=== PATIENT | female | born 1955 | race Caucasian/White ===

== ENCOUNTER 2017-01-31 08:47 | Outpatient (CLI) | payer BC ==
--- NOTE | 2017-01-31 13:35 | NM ---
NUCLEAR MEDICINE HIDA SCAN: Date: 01/31/17 HISTORY: Abdominal distention. Hematochezia. Liver hemangioma. Gallbladder polyp. COMPARISON: Gallbladder ultrasound from 2008. TECHNIQUE: Real-time imaging of the abdomen was performed with intravenous administration of 5.2 mCi technetium- 99m mebrofenin. After 1 hour, 8 oz. of Ensure was given orally. FINDINGS: There is normal hepatic uptake. Gallbladder is seen quickly. The extrahepatic biliary system uptake i s normal. Bowel is seen quickly. The ejection fraction is normal at 43%. IMPRESSION: Normal nuclear medicine HIDA scan with ejection fraction. POS: [facility]
== END 2017-01-31 08:48 | disposition home or self-care (01) ==
LOC: NM 08:47
PROVIDERS: ATTEND Internal Medicine Gastroenterology
DX: D18.03 Hemangioma of intra-abdominal structures (principal); K82.4 Cholesterolosis of gallbladder; K92.1 Melena; R14.0 Abdominal distension (gaseous); Z80.0 Family history of malignant neoplasm of digestive organs
CPT/HCPCS: 78227; A9537

== ENCOUNTER 2017-10-13 07:48 | Outpatient (CLI) | payer BC | END 2017-10-13 07:49 | disposition home or self-care (01) | LOC: BICCT 07:48 | PROVIDERS: ATTEND Internal Medicine Gastroenterology | DX: R10.30 Lower abdominal pain, unspecified (principal) | CPT/HCPCS: 74177 ==

== ENCOUNTER → 2018-05-18 | Day surgery (SDC) | payer BC | LOC: ENDO/OP 07:42 | PROVIDERS: ATTEND Internal Medicine Gastroenterology | DX: R13.10 Dysphagia, unspecified (principal); R10.30 Lower abdominal pain, unspecified; E55.9 Vitamin D deficiency, unspecified; R35.1 Nocturia; Z79.899 Other long term (current) drug therapy | CPT/HCPCS: 91010 ==

== ENCOUNTER 2018-11-23 16:01 | Outpatient (CLI) | payer BC ==
[2018-11-23 17:18] LABS: #Basophils 0.1 thou/uL (0.0-0.2); #Eosinphils 0.1 thou/uL (0.0-0.7); #Lymphocytes 2.6 thou/uL (1.20-3.40); #Monocytes 0.5 thou/uL (0.11-0.59); #Neutrophils 2.9 thou/uL (1.40-6.50); %Basophils 1.3 % (0.0-1.0); %Eosinophils 1.7 % (0.0-10.0); %Lymphocytes 41.6 % (21.0-51.0); %Monocytes 8.4 % (0.0-10.0); Hemoglobin 15.3 g/dL (12.0-16.0); Mean Corpuscular HGB CONC 34.4 g/dL (32.0-36.0); Mean Corpuscular Hemoglobin 31.1 pg (27.0-31.0); Mean Corpuscular Volume 90.4 fL (78.0-98.0); Mean Platelet Volume 8.8 fL (7.4-10.4); Platelet Count 286 thou/uL (130-400); RBC Distribution Width 11.7 % (11.5-14.5); White Blood Cell (WBC) Count 6.1 thou/uL (4.8-10.8)
[2018-11-23 17:45] LABS: ALT (SGPT) 24 U/L (8-55); AST (SGOT) 17 U/L (5-34); Albumin 4.2 g/dL (3.4-4.8); Alkaline Phosphatase 76 U/L (40-150); Anion Gap 12 mmol/L (10-20); BUN (Urea Nitrogen) 16 mg/dL (9.8-20.1); Bilirubin, Total 0.4 mg/dL (0.2-1.2); Calc. Creatinine Clearance 0 mL/min (70-130); Calcium 10.4 mg/dL (7.8-10.44); Carbon Dioxide 29 mmol/L (23-31); Chloride 105 mmol/L (98-107); Estimated GFR-MDRD 64; Globulin 2.4 g/dL (2.4-3.5); Glucose 79 mg/dL (80-115); Potassium 4.2 mmol/L (3.5-5.1); Protein, Total 6.6 g/dL (6.0-8.3); Sodium 142 mmol/L (136-145)
--- NOTE | 2018-11-24 16:49 | EKG ---
Test Reason : Blood Pressure : / mmHG Vent. Rate : 085 BPM Atrial Rate : 085 BPM P-R Int : 148 ms QRS Dur : 070 ms QT Int : 344 ms P-R-T Axes : 041 066 064 degrees QTc Int : 409 ms Normal sinus rhythm Normal ECG When compared with ECG of 24-JAN-2009 12:18, No significant change was found Confirmed by DR. Sridhar ORANTES ([id number]) on 11/24/2018 4:49:17 PM Referred By: ARIEL Confirmed By:DR. Sridhar ORANTES
== END 2018-11-23 16:02 | disposition home or self-care (01) ==
LOC: LABBT 16:01
PROVIDERS: ATTEND Surgery
DX: Z01.818 Encounter for other preprocedural examination (principal); N90.89 Other specified noninflammatory disorders of vulva and perineum
CPT/HCPCS: 80053; 85025; 93005; 93010

== ENCOUNTER 2018-12-01 05:52 | Day surgery (SDC) | payer BC ==
[2018-11-23 16:33] VITALS: BMI 31.0
[2018-12-01] MEDS ORDERED: Fentanyl 100 MCG/2 ML VIAL ONE (06:33)
[2018-12-01] MEDS ORDERED: Lidocaine 2% PF 5 ML VIAL ONE (06:34)
[2018-12-01] MEDS ORDERED: Bupivacaine HCl 0.5%/Epinephrine 1:200,000/PF 30 ml Vial ONE (06:34)
--- NOTE | 2018-12-01 12:49 | OP ---
DATE OF PROCEDURE: 12/01/2018 PREOPERATIVE DIAGNOSIS: Perineal cyst x2, right perineum. PROCEDURE PERFORMED: Excisional biopsy. INDICATIONS: A 63-year-old female, who has had the cysts for several months. They got infected, were draining. They have calmed down, but they still bother. FINDINGS: Two 5-mm cysts, right perineum. DESCRIPTION OF PROCEDURE: After informed consent was obtained, the patient was taken to the operating room, given general mask anesthesia, placed in lithotomy position. Perineum prepped and draped in usual fashion. Local anesthesia was infiltrated subcutaneously and deep. An elliptical incision was performed to excise both the cyst. These were excised. Hemostasis was achieved with direct pressure. The subcu was reapproximated with interrupted 3-0 Vicryl, skin was closed with interrupted 4-0 Rapide. Steri-Strips applied. Sterile bandage applied. The patient tolerated the procedure well, transferred to Recovery in good condition. Sponge and needle count verified correct x2. Job ID: [id number]
[2018-12-01] MEDS ORDERED: Lidocaine 1% PF 5 ML VIAL ONE (13:34)
[2018-12-01] MEDS ORDERED: PROPOFOL 200 MG/20 ML VIAL ONE (13:34)
[2018-12-01] MEDS ORDERED: PHENYLEPHRINE-NS 100 MCG/ML 10 ML SYRINGE ONE (13:34)
[2018-12-01] MEDS ORDERED: Ketorolac Tromethamine 30 MG/ML VIAL ONE (13:34)
[2018-12-01] MEDS ORDERED: Dexamethasone 20 MG/5 ML VIAL ONE (13:34)
[2018-12-01] MEDS ORDERED: Ondansetron PF 4 MG/2 ML Vial ONE (13:34)
--- NOTE | 2018-12-05 05:55 | PQF ---
[facility] POST DISCHARGE CLINICAL DOCUMENTATION IMPROVEMENT CLARIFICATION FORM l Todays Date: 12/05/18 l Patients Name JAYSON WOODRUFF l l Admit Date 12/01/18 l Disch Date 12/01/18 Ent Physician Name Dixon Senior Email: [email or web address] Cell: [phone] To be completed by Ent Physician: Present Clinical Indicators - Signs / Symptoms Results and Location in Medical Record [ ] Documentation of: [ ] [ ] Documentation of: [ ] [ ] Documentation of: [ ] [ ] Documentation of: [ ] [ ] Risks [ ] [ ] [ ] Treatment [ ] Epidermal inclusion cyst (x2) Perineum Query for size of excised margins for both (x2) epidermal inclusion cysts [ ] [ ] To be completed by Physician: ANGEL GIBBONS The documentation in this patients record requires clarification to ensure coding compliance and accuracy. Check the appropriate box and include in your discharge summary. [ ] [ ] [ ] [ ] Please check this box if this does not apply to this patient [ ] Unable to determine [ ] Other diagnosis: Review the following information and exercise your independent professional judgment in responding to the clarification. Based upon the clinical findings, risk factors, and treatment, please clarify if you are treating one of the above probable or suspected diagnoses. Physician Signature: Date Time MTDD
== END 2018-12-01 10:37 | disposition home or self-care (01) ==
LOC: SDC 05:52
PROVIDERS: ATTEND Surgery
DX: L72.0 Epidermal cyst (principal); K21.9 Gastro-esophageal reflux disease without esophagitis; K58.9 Irritable bowel syndrome, unspecified; M79.7 Fibromyalgia; G43.909 Migraine, unspecified, not intractable, without status migrainosus; E78.5 Hyperlipidemia, unspecified; I10 Essential (primary) hypertension; I25.10 Atherosclerotic heart disease of native coronary artery without angina pectoris; Z79.899 Other long term (current) drug therapy
CPT/HCPCS: 88304; J0131; J0670; J0690; J1100; J1885; J2001; J2405; J2704; J3010

== ENCOUNTER 2019-01-19 13:33 | Outpatient (CLI) | payer BC ==
--- NOTE | 2019-01-19 13:59 | RAD ---
CHEST 2 VIEWS: HISTORY: Pneumonia, shortness of breath. COMPARISON: 12/31/2015. FINDINGS: Mild stable linear stranding in the lung bases. Heart size is within normal limits. The lungs are c lear of acute process. IMPRESSION: Mild stable bibasilar chronic changes. No significant active intrathoracic disease. No confluent pn eumonia. POS: [facility]
--- NOTE | 2019-01-19 15:57 | CT ---
CT Chest W Con HISTORY: Mass on back. This area was marked with a radiopaque marker. COMPARISON: None. FINDINGS: The lungs are clear of any infiltrative process. There are no pulmonary nodules identified. There is no significant mediastinal, hilar or axillary lymphadenopathy. The marker is placed along the left posterior back. There is no soft tissue mass demonstrated in this area. Liver shows mild fatty change. The right and left adrenal glands are normal IMPRESSION: 1. Fatty change of the liver. 2. Incidental note is made of thyroid nodules. 3. No evidence of any mass in the region of patient's palpable abnormality.
[2019-01-19] MEDS ORDERED: Iopamidol-370 76% 500 ML 1 ML ONE (16:27)
== END 2019-01-19 13:34 | disposition home or self-care (01) ==
LOC: BICCT 13:33
PROVIDERS: ATTEND Nurse Practitioner
DX: J18.9 Pneumonia, unspecified organism (principal); R22.2 Localized swelling, mass and lump, trunk; E04.2 Nontoxic multinodular goiter
CPT/HCPCS: 71046; 71260; Q9967

== ENCOUNTER 2019-04-16 09:51 | Outpatient (CLI) | payer BC ==
--- NOTE | 2019-04-18 10:12 | MMO ---
Bilateral MAMMO Bilat Screen [facility]. CLINICAL HISTORY: Patient is 63 years old and is seen for screening. The patient has the following family history of breast cancer: maternal aunt, at age 62, malignant (generic) and maternal aunt, at age 58, malignant (generic), great aunt. The patient has no personal history of cancer. VIEWS: The views performed were: bilateral craniocaudal with tomosynthesis and bilateral mediolateral oblique with tomosynthesis. FILMS COMPARED: The present examination has been compared to prior imaging studies performed at [facility] on 04/03/2018, at [facility] on 01/24/2017, and at [facility] on 05/29/2013 and 10/06/2015. This study has been interpreted with the assistance of computer-aided detection. MAMMOGRAM FINDINGS: There are scattered fibroglandular densities. There are no suspicious masses, suspicious calcifications, or new areas of architectural distortion. IMPRESSION: THERE IS NO MAMMOGRAPHIC EVIDENCE OF MALIGNANCY. A ROUTINE FOLLOW-UP MAMMOGRAM IN 1 YEAR IS RECOMMENDED. THE RESULTS OF THIS EXAM WERE SENT TO THE PATIENT. ACR BI-RADS Category 1 - Negative MAMMOGRAPHY NOTE: 1. A negative mammogram report should not delay a biopsy if a dominant of clinically suspicious mass is present. 2. Approximately 10% to 15% of breast cancers are not detected by mammography. 3. Adenosis and dense breasts may obscure an underlying neoplasm. Reported by: JUSTEN KEN MD Electonically Signed: [id number]
== END 2019-04-16 09:52 | disposition home or self-care (01) ==
LOC: BICMAMMO 09:51
PROVIDERS: ATTEND Nurse Practitioner
DX: Z12.31 Encounter for screening mammogram for malignant neoplasm of breast (principal); Z80.3 Family history of malignant neoplasm of breast
CPT/HCPCS: 77063; 77067

== ENCOUNTER 2019-09-25 13:29 | Outpatient (CLI) | payer OTHER ==
--- NOTE | 2019-09-25 13:53 | ULT ---
Exam: Soft tissue ultrasound HISTORY: Localized mass and swelling involving the left paraspinal region. Mass is increasing in size . Associated pain. COMPARISON: None Correlation: Chest CT with contrast 01/19/2019 FINDINGS: In the region of concern, there is a well-circumscribed mixed echotexture focus measuring 4 .8 x 1.1 x 2.2 cm. Well encapsulated lesion is favored to be a lipoma centered in the subcutaneous fat. IMPRESSION: Well-circumscribed mixed echotexture mass most compatible with lipoma. Given the patient' s symptoms of pain and reported growth, consider general surgical consultation for complete excision.
== END 2019-09-25 13:30 | disposition home or self-care (01) ==
LOC: BICULT 13:29
PROVIDERS: ATTEND Nurse Practitioner
DX: R22.2 Localized swelling, mass and lump, trunk (principal)
CPT/HCPCS: 76999

== ENCOUNTER 2020-11-04 13:01 | Outpatient (CLI) | payer BC ==
[2020-11-04 13:26] LABS: Estimated GFR-MDRD - POC Greater than 90
[2020-11-04] MEDS ORDERED: Iopamidol 370 76% 100 ML VIAL ONE (13:33)
== END 2020-11-04 13:02 | disposition home or self-care (01) ==
LOC: BICCT 13:01
PROVIDERS: ATTEND Physician Assistant Medical
DX: R10.32 Left lower quadrant pain (principal); K57.30 Diverticulosis of large intestine without perforation or abscess without bleeding; K82.4 Cholesterolosis of gallbladder; N32.89 Other specified disorders of bladder; Z90.710 Acquired absence of both cervix and uterus
CPT/HCPCS: 74177; 82565; Q9967

== ENCOUNTER 2020-11-28 08:00 | Outpatient (CLI) | payer BC | END 2020-11-28 08:01 | disposition home or self-care (01) | LOC: NM 08:00 | PROVIDERS: ATTEND Physician Assistant Medical | DX: K82.4 Cholesterolosis of gallbladder (principal); R13.19 Other dysphagia; R07.0 Pain in throat | CPT/HCPCS: 78227; A9537 ==

== ENCOUNTER 2021-01-01 13:28 | Outpatient (CLI) | payer BC | END 2021-01-01 13:29 | disposition home or self-care (01) | LOC: BICULT 13:28 | PROVIDERS: ATTEND Nurse Practitioner | DX: E07.89 Other specified disorders of thyroid (principal); E04.1 Nontoxic single thyroid nodule | CPT/HCPCS: 76536 ==

== ENCOUNTER 2021-01-14 12:25 | Day surgery (SDC) | payer BC ==
[2021-01-14] MEDS ORDERED: Sodium Bicarbonate 2.5 MEQ/5 ML VIAL ONE (12:38)
[2021-01-14] MEDS ORDERED: Lidocaine 1% PF 5 ML VIAL ONE (12:38)
[2021-01-14 13:05] VITALS: BMI 29.5
[2021-01-14 13:06] VITALS: BP 123/58; TEMP 98.4
== END 2021-01-14 13:35 | disposition home or self-care (01) ==
LOC: ULT 12:25
PROVIDERS: ATTEND Otolaryngology Plastic Surgery within the Head & Neck
PROC: 0G9G3ZX Drainage of Left Thyroid Gland Lobe, Percutaneous Approach, Diagnostic (ICD-10-PCS; principal; 2021-01-14)
DX: E04.1 Nontoxic single thyroid nodule (principal); E78.5 Hyperlipidemia, unspecified; I10 Essential (primary) hypertension; I25.10 Atherosclerotic heart disease of native coronary artery without angina pectoris; Z79.899 Other long term (current) drug therapy
CPT/HCPCS: 60100; 76942; 88173

== ENCOUNTER 2021-02-10 13:10 | Outpatient (CLI) | payer BC ==
[~2021-02-10 13:10] MED LIST: Magnevist 469MG/ML 20 ML VIAL ONE
== END 2021-02-10 13:11 | disposition home or self-care (01) ==
LOC: BICMRI 13:10
PROVIDERS: ATTEND Nurse Practitioner Acute Care
DX: F07.81 Postconcussional syndrome (principal)
CPT/HCPCS: 70553; 82565; A9579

== ENCOUNTER 2021-06-17 08:54 | Outpatient (CLI) | payer BC | END 2021-06-17 08:55 | disposition home or self-care (01) | LOC: BICMAMMO 08:54 | PROVIDERS: ATTEND Nurse Practitioner | DX: Z12.31 Encounter for screening mammogram for malignant neoplasm of breast (principal); Z80.3 Family history of malignant neoplasm of breast | CPT/HCPCS: 77063; 77067 ==

== ENCOUNTER 2022-03-02 13:03 | Outpatient (CLI) | payer BC ==
[2022-03-02] MEDS ORDERED: Iopamidol 370 76% 100 ML VIAL ONE (16:06)
== END 2022-03-02 13:04 | disposition home or self-care (01) ==
LOC: BICCT 13:03
PROVIDERS: ATTEND Nurse Practitioner
DX: M54.6 Pain in thoracic spine (principal); R22.2 Localized swelling, mass and lump, trunk
CPT/HCPCS: 72129; 82565; Q9967

== ENCOUNTER 2022-04-06 09:36 | Outpatient (CLI) | payer BC | END 2022-04-06 09:37 | disposition home or self-care (01) | LOC: SCSMRI 09:36 | PROVIDERS: ATTEND Nurse Practitioner Family | DX: S32.010A Wedge compression fracture of first lumbar vertebra, initial encounter for closed fracture (principal); S32.020A Wedge compression fracture of second lumbar vertebra, initial encounter for closed fracture; M47.26 Other spondylosis with radiculopathy, lumbar region; M51.35 Other intervertebral disc degeneration, thoracolumbar region; M47.815 Spondylosis without myelopathy or radiculopathy, thoracolumbar region; M51.16 Intervertebral disc disorders with radiculopathy, lumbar region; M48.061 Spinal stenosis, lumbar region without neurogenic claudication; M25.78 Osteophyte, vertebrae; M47.817 Spondylosis without myelopathy or radiculopathy, lumbosacral region | CPT/HCPCS: 72148 ==